=== PATIENT | male | born 1980 | race Caucasian/White ===

== ENCOUNTER 2017-02-21 18:40 | Emergency (ER) | payer SELFPAY ==
--- NOTE | 2017-02-21 18:49 | ED Physician Documentation ---
General Adult - HISTORIAN Historian: patient - HPI Chief Complaint: General Adult Onset: other (one week ) Timing: still present Severity: mild Further Comments: no - ROS CONST: fever. denies: chills - PAST HX Past History: none, other Other History: none Allergies/Adverse Reactions: Allergies Allergy/AdvReac Type Severity Reaction Status Date / Time No Known Allergies Allergy Unverified 02/21/17 18:56 Home Medications: Ambulatory Orders Medication Instructions Recorded Doxycycline Monohydrate 100 mg PO BID #20 capsule 02/21/17 [Vibramycin] - SOCIAL HX Smoking History: greater than 1 pack/day (1 ppd) Alcohol Use: none Drug Use: none - FAMILY HX Family History: No - REVIEWED ASSESSMENTS Nursing Assessment Reviewed: Yes Vitals Reviewed: Yes General Adult Physical Exam - PHYSICAL EXAM GENERAL APPEARANCE: mild distress EENT: eye inspection normal, other (dentation in need of repair) NECK: lymphadenopathy (right submental) RESPIRATORY: no resp distress, chest non-tender, breath sounds normal. No: rales, rhonchi CVS: reg rate & rhythm, heart sounds normal, equal pulses, no murmur SKIN: other (erythema and swelling to the left chin area. Several smaller lesions noted to [place] area.) NEURO: oriented X3, CN's nml as tested, mood/affect nml, cognition normal Discharge Clincal Impression: Cellulitis and abscess of face Referrals: Primary Doctor,No [Primary Care Provider] - 2 Days Additional Instructions: Do not shave. Take doxycycline twice a day as directed. If your symptoms get worse to follow-up with your primary care provider or return to the ED. Condition: Stable Disposition: 01 HOME, SELF-CARE Decision to Admit: NO Date of Decison to Admit: 02/21/17 Decision Time: 18:54
[2017-02-21 19:00] VITALS: BP 125/82
== END 2017-02-21 19:10 | disposition home or self-care (01) ==
LOC: ED 18:40
DX: L03.211 Cellulitis of face (principal); L02.01 Cutaneous abscess of face
CPT/HCPCS: 87070; 99283

== ENCOUNTER 2017-04-28 17:09 | Emergency (ER) | payer SELFPAY ==
[2017-04-28] MEDS: traMADol HCL 50 MG TABLET PO ONE (17:36)
[2017-04-28] MEDS: cefTRIAXone SODIUM 1 GM VIAL IM SCH (17:55)
[2017-04-28] MEDS: Lidocaine 1% 5ml(IM or SUTURE)(PAIN CLINIC) ONE (17:55)
--- NOTE | 2017-04-28 18:05 | ED Physician Documentation ---
Abscess - HISTORIAN Historian: patient - HPI Stated Complaint: abscess to rt fore arm and left jaw Chief Complaint: Abscess Onset: days ago (14) Timing: still present Duration: worse Location: facial, RUE Quality: painful Identified Cause?: No When Did Symptoms Start: 04/14/16 Where: home Context: Medication Exposure: other (methamphetamine) Context: Food Exposure: none Context: Other Exposure: denies: bee sting, wasp sting, ant bite, spider bite, poison juan david, poison oak, infectious illness, soap, detergent Further Comments: no - ROS CONST: none CVS/RESP: none EYES/ENT: none GI/: none MS/SKIN/LYMPH: other (abscesses as described above) NEURO/PSYCH: none - PAST HX Past History: none Other History: none Surgeries/Procedures: No Immunizations: referred to PCP Allergies/Adverse Reactions: Allergies Allergy/AdvReac Type Severity Reaction Status Date / Time No Known Allergies Allergy Verified 04/28/17 17:46 - SOCIAL HX Smoking History: cigarettes Alcohol Use: none Drug Use: methamphetamines - FAMILY HX Family History: none - VITAL SIGNS Vital Signs: Vital Signs Temp Pulse Resp BP Pulse Ox 98.4 F 91 H 18 114/61 97 04/28/17 17:09 04/28/17 19:06 04/28/17 19:06 04/28/17 19:06 04/28/17 19:06 - REVIEWED ASSESSMENTS Nursing Assessment Reviewed: Yes Vitals Reviewed: Yes Progress - Results/Orders Results/Orders: no testing ordered - Progress Progress: Facial abscess drained and pt. given 1 gram Rocephin IM in ER. Critical Care Note - Critical Care Note Total Time (mins): 0 ED Results Lab/Radiology - Lab Results Lab Results: none ordered - Radiology Radiology Impressions: none ordered - Orders Orders: ED Orders Category Date Time Status Apply/change dressing NOW Care 04/28/17 18:15 Active Lidocaine 1% 5ml(IM or SUTURE) [Xylocaine] Med 04/28/17 17:49 Discontinued 50 mg .ROUTE .STK-MED ONE cefTRIAXone SODIUM [Rocephin] Med 04/28/17 17:49 Discontinued 1 gm .ROUTE .STK-MED ONE cefTRIAXone SODIUM [Rocephin] Med 04/28/17 18:00 Discontinued 1 gm IM QD traMADol HCL [Ultram] Med 04/28/17 17:32 Discontinued 50 mg PO NOW ONE Abscess Physical Exam - EXAM General Appearance: alert, moderate distress Skin: warm,dry, abscess (left facial/jaw area, right forearm) Location: face, extremities (right forearm) Character: other (facial lesion carbuncular, forearm lesion erythematous, no flocculence, no drainage) Symptoms: warmth, tenderness, swelling, induration, weeping, inflammation, crusting Extremities: non-tender, nml ROM, no edema EENT: eyes nml inspection, lips nml, gums nml, pharynx nml Neck: trachea midline, no swelling, stiff neck Respiratory: no resp distress, chest non-tender, breath sounds normal CVS: reg. rate & rhythm, heart sounds nml Abdomen: non-tender, no organomegaly, nml bowel sounds Neuro/Psych: oriented x3, CN's nml as tested, motor nml, sensation nml, mood/ affect nml Discharge Clincal Impression: Facial abscess, Abscess of forearm Referrals: Primary Doctor,No [Primary Care Provider] - 2 Days Comments: discharged in stable condition with script for clindamycin 300 mg 1 pill 4x/day for 10 days. Condition: Stable Disposition: HOME, SELF-CARE Decision to Admit: NO Decision Time: 18:05
[2017-04-28 19:11] VITALS: BP 114/61
[2017-04-28] MEDS: cefTRIAXone SODIUM 1 GM VIAL ONE (19:12)
== END 2017-04-28 18:30 | disposition home or self-care (01) ==
LOC: ED 17:09
DX: L02.01 Cutaneous abscess of face (principal); L02.419 Cutaneous abscess of limb, unspecified; F15.99 Other stimulant use, unspecified with unspecified stimulant-induced disorder
CPT/HCPCS: 96372; 99282; 99283; J0696